=== PATIENT | male | born 1985 | race African-American/Black ===

== ENCOUNTER 2022-07-04 10:46 | Emergency (ER) | payer BC ==
[~2022-07-04] VITALS: Ht 172.7 cm; Wt 84.8 kg
[2022-07-04 10:55] VITALS: BP 132/76
[2022-07-04] MEDS ORDERED: METOCLOPRAMIDE 10 MG TAB PO ONE (11:35)
[2022-07-04] MEDS ORDERED: KETOROLAC 30 MG/ML VIAL IM ONE (11:35)
[2022-07-04 12:13] VITALS: BP 132/76
[2022-07-04] MEDS ORDERED: NAPR-54 PO (12:32)
[2022-07-04] MEDS ORDERED: ONDA-188 SL (12:32)
== END 2022-07-04 12:13 | disposition home or self-care (01) ==
LOC: MED 10:46
DX: R51.9 Headache, unspecified (principal); R03.0 Elevated blood-pressure reading, without diagnosis of hypertension; F17.200 Nicotine dependence, unspecified, uncomplicated; Z79.899 Other long term (current) drug therapy; Z79.1 Long term (current) use of non-steroidal anti-inflammatories (NSAID)
CPT/HCPCS: 96372; 99283; J1885; J8597